=== PATIENT | male | born 1985 | race Two or more races ===

== ENCOUNTER → 2024-06-19 | Outpatient (CLI) | payer MEDICAID, SELFPAY ==
--- NOTE | 2024-06-19 13:00 | XR_ITS ---
Examination: Sacroiliac joints 3 views TECHNIQUE: AP RUDD ABDIRIZAK sacroiliac joints 3 views Exam date and time: June 19, 2024 1405 hours INDICATIONS: Sacral pain the last 6 months FINDINGS: Mild bilateral sacroiliitis Symmetrical sacral foramina No fracture IMPRESSION: Mild bilateral sacroiliitis
--- NOTE | 2024-06-19 13:00 | XR_ITS ---
Examination: AP pelvis 2 views TECHNIQUE: AP pelvis hips in neutral position, AP pelvis hips abduction position Exam date and time: June 19, 2024 1400 hours INDICATIONS: Bilateral hip pain worse the last 6 months FINDINGS: No hip fracture or hip dislocation No significant hip arthritic change No avascular necrosis IMPRESSION: No hip fractures or hip dislocations No significant hip arthritic change
== END | disposition home or self-care (01) ==
LOC: CDIM 12:24
PROVIDERS: PCP Student in an Organized Health Care Education/Training Program; Referring Provider Student in an Organized Health Care Education/Training Program; Visit Provider Student in an Organized Health Care Education/Training Program
DX: M25.552 Pain in left hip (principal); M25.551 Pain in right hip; M46.1 Sacroiliitis, not elsewhere classified
CPT/HCPCS: 72170; 72202

== ENCOUNTER 2024-08-22 07:47 | Outpatient (RCR) | payer MEDICAID, SELFPAY ==
--- NOTE | 2024-08-23 08:16 | PTNOTE_ITS ---
PT OP Initial Eval Patient Information Outpatient Physical Therapy Treatment Date: 08/22/24 Visit Reasons: Ankylosing spondylitis Medical Diagnosis: M54.5 Treatment Dx #1: Back Pain Start of Care: 08/22/24 Date of Onset: 6 months ago Smoking Status Smoking Status: Never smoker Initial Assessment Subjective: Pt is a 39 y/o male reports of chronic back pain (5/10) worsening ~ 6 months ago. According provider thinks he has ankylosis spondylitis, however, is running tests to confirmed condition. Pt has limitation with sitting, standing, chores, self care, yardwork, and performing recreational activities. Objective: L/S AROM: all motions are WFL with end range pain into extension Hip PROM: all motions are WFL Hip MMTs: grossly 4-/5 Muscle Length: tight Hs Assessment: Pt demonstrate back pain leading to difficulty with ADLs. 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
== END 2024-08-24 23:59 | disposition home or self-care (01) ==
LOC: CPTX 07:47
PROVIDERS: PCP Student in an Organized Health Care Education/Training Program; Referring Provider Student in an Organized Health Care Education/Training Program; Visit Provider Student in an Organized Health Care Education/Training Program
DX: M54.50 Low back pain, unspecified (principal); G89.29 Other chronic pain
CPT/HCPCS: 97162

== ENCOUNTER → 2024-08-23 | Outpatient (CLI) | payer MEDICAID, SELFPAY ==
--- NOTE | 2024-08-23 09:21 | XR_ITS ---
Examination: Thoracic spine 3 views Technique one AP lateral coned lateral upper dorsal spine 3 views Exam date and time: August 23, 2024 at 1051 hours INDICATIONS: Mid back pain 6 years getting worse. FINDINGS: Mild osteopenia Thoracic dextroscoliosis 8 degrees No thoracic fracture Mild diffuse thoracic disc narrowing Intact pedicles IMPRESSION: Mild diffuse thoracic degenerative disc disease
--- NOTE | 2024-08-23 09:21 | XR_ITS ---
EXAMINATION: Cervical spine, 5 views Technique: Cervical spine AP, AP odontoid, lateral, bilateral obliques, 5 views Exam date and time: August 23, 2024 1043 hours INDICATIONS: Worsening neck pain over 6 years FINDINGS: Satisfactory alignment cervical vertebral bodies No cervical fracture Intact odontoid No significant cervical disc narrowing No significant neural foraminal stenosis The odontoid is intact IMPRESSION: No cervical fracture or significant cervical disc narrowing
== END | disposition home or self-care (01) ==
PROVIDERS: PCP Student in an Organized Health Care Education/Training Program; Referring Provider Nurse Practitioner Family; Visit Provider Nurse Practitioner Family
DX: M54.2 Cervicalgia (principal); M51.34 Other intervertebral disc degeneration, thoracic region
CPT/HCPCS: 72050; 72072

== ENCOUNTER 2024-09-11 15:00 | Outpatient (RCR) | payer MEDICAID, SELFPAY ==
--- NOTE | 2024-08-28 08:40 | PT.ODAYNRPT ---
PT Outpatient Daily Note OP Daily Note Outpatient Physical Therapy Treatment Date: 08/28/24 Visit Reasons: ANKYLOSING SPONDYLITIS Subjective: Pt's back is okay. Pt continues to notice some stiffness. Objective: Please see flow chart for list of ther ex performed Assessment: tolerate exercises with minimal pain; pre heat helped with pain Plan: Continue with PT Length of Time (minutes) of Treatment: 30 Minutes Procedure Charges Therapeutic Exercise 30 minutes: Yes
--- NOTE | 2024-08-30 11:42 | PT.ODAYNRPT ---
PT Outpatient Daily Note OP Daily Note Outpatient Physical Therapy Treatment Date: 08/30/24 Visit Reasons: ANKYLOSING SPONDYLITIS Subjective: Pt's back is better, however, continues to have stiffness Objective: Please see flow chart for list of ther ex performed Assessment: tolerate exercises with minimal pain Plan: Continue with PT Length of Time (minutes) of Treatment: 30 Minutes Procedure Charges Therapeutic Exercise 30 minutes: Yes
--- NOTE | 2024-09-05 15:27 | PT.ODAYNRPT ---
PT Outpatient Daily Note OP Daily Note Outpatient Physical Therapy Treatment Date: 09/05/24 Visit Reasons: ANKYLOSING SPONDYLITIS Subjective: Pt's back feels better and has been able to move more lately with less restriction Objective: Please see flow chart for list of ther ex performed Assessment: progressing with thoracic core and spinal mobility exercises with minimal pain Plan: Continue with PT Length of Time (minutes) of Treatment: 30 Minutes Procedure Charges Therapeutic Exercise 30 minutes: Yes
--- NOTE | 2024-09-11 16:06 | PT.ODAYNRPT ---
PT Outpatient Daily Note OP Daily Note Outpatient Physical Therapy Treatment Date: 09/11/24 Visit Reasons: ANKYLOSING SPONDYLITIS Subjective: Pt's back is much better. Pt does not have any new concerns. Objective: Please see flow chart for list of ther ex performed Assessment: progressing with hip stretches and strengthening exercises with minimal limitation Plan: Continue with PT Length of Time (minutes) of Treatment: 30 Minutes Procedure Charges Therapeutic Exercise 30 minutes: Yes
--- NOTE | 2024-09-13 14:55 | PT.ODS1RPT ---
PT OP Progress/Discharge Note Date of Service: 09/13/24 Progress Note/DC Note Progress Note/Discharge Note: DC Note Patient Information Visit Reasons: ANKYLOSING SPONDYLITIS Service Discharge Date: 09/13/24 Status Assessment: Pt has been seen for 5 visits (eval + 4 visits). Pt last treated on 09/11/24 and came 09/13/23 to cx all pending appt since physical therapy is not helping. Pt d/c from care per Pt's request and did not meet set goals in therapy; thank you for your referrals
== END 2024-09-21 23:59 | disposition home or self-care (01) ==
LOC: CPTX 15:00
PROVIDERS: PCP Student in an Organized Health Care Education/Training Program; Referring Provider Student in an Organized Health Care Education/Training Program; Visit Provider Student in an Organized Health Care Education/Training Program
DX: M54.50 Low back pain, unspecified (principal); G89.29 Other chronic pain
CPT/HCPCS: 97110

== ENCOUNTER → 2025-01-16 | Outpatient (CLI) | payer MEDICAID, SELFPAY ==
--- NOTE | 2025-01-16 | XR_ITS ---
Examination: Bilateral knee 4 views Technique one AP lateral right and left knees total 4 views Date and time: January 16, 2025 12:51 PM INDICATIONS: Bilateral knee pain beginning 2 years ago. FINDINGS: No fracture or dislocation involving either knee No significant arthritic change involving either knee No opaque foreign bodies IMPRESSION: Fractures or significant arthritic change
== END | disposition home or self-care (01) ==
LOC: CDIM 11:45
PROVIDERS: PCP Physician Assistant; Referring Provider Physician Assistant; Visit Provider Physician Assistant
DX: M25.561 Pain in right knee (principal); M25.562 Pain in left knee
CPT/HCPCS: 73560